=== PATIENT | female | born 1985 | race Two or more races ===

== ENCOUNTER 2017-04-03 13:27 | Emergency (ER) | payer OTHER ==
[~2017-04-03] VITALS: Ht 166.4 cm; Wt 99.8 kg
[2017-04-03 13:33] VITALS: BP 139/90; PULSE 83; RESP 16; TEMP 98.3; O2SAT 99
--- NOTE | 2017-04-03 13:53 | PD ---
HPI Chief Complaint: Exposure to Blood/Body Fluids Time Seen by Provider: 13:46 Travel History International Travel<30 days: No Contact w/Intl Traveler<30days: No Traveled to known affect area: No History of Present Illness HPI 31-year-old female presents to the emergency department for evaluation after possible exposure. 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 She states she hurt he washed all her right eye. She presents her anxiety depression. She denies any chance of . She had no other injury or source of exposure. Patient states the source patient did have some trace blood in the urine. PFSH Past Medical History ?: Not LMP: MIRENA Social History Alcohol Use: No Tobacco Use: No Substance Use: No Allergies-Medications (Allergen,Severity, Reaction): Coded Allergies: No Known Allergies (Unverified , 04/03/17) Reported Meds & Prescriptions Reported Meds & Active Scripts Active Reported Lorazepam 0.5 Mg Tab 0.5 Mg PO Q8H PRN Hydrochlorothiazide 25 Mg Tab 25 Mg PO DAILY Effexor (Venlafaxine HCl) 37.5 Mg Tab 37.5 Mg PO DAILY Review of Systems Except as stated in HPI: all other systems reviewed are Neg Physical Exam Narrative GENERAL: Well-nourished, well-developed female patient, ambulatory. Afebrile. SKIN: Focused skin assessment warm/dry. HEAD: Normocephalic. Atraumatic. EYES: No scleral icterus. No injection or drainage. NECK: Supple, trachea midline. No JVD or lymphadenopathy. CARDIOVASCULAR: Regular rate and rhythm without murmurs, gallops, or rubs. RESPIRATORY: Breath sounds equal bilaterally. No accessory muscle use. Lungs sounds are clear to auscultation. GASTROINTESTINAL: Abdomen soft, non-tender, nondistended. MUSCULOSKELETAL: No cyanosis, or edema. BACK: Nontender without obvious deformity. No CVA tenderness. Data Data Last Documented VS Vital Signs Date Time Temp Pulse Resp B/P Pulse Ox O2 Delivery O2 Flow Rate FiO2 04/03/17 13:33 98.3 83 16 139/90 99 MDM Medical Decision Making Medical Screen Exam Complete: Yes Emergency Medical Condition: Yes Medical Record Reviewed: Yes Differential Diagnosis Body fluid exposure versus medical clearance versus eye exposure Narrative Course 31-year-old female presents to the emergency department for evaluation after she /urine in her right eye. She states that the source patient's urine did have some trace blood. Therefore, we will draw the patient's labs and recommend that the source patient be drawn as well. I do not recommend starting PEP treatment due to minor exposure. The patient verbalizes agreement. The patient was discharged in stable condition with instructions, including return instructions and follow up instructions. Diagnosis Primary Impression: Employee exposure to body fluids Patient Instructions: Body Substance Exposure (ED), General Instructions Additional Instructions: Follow up with employee med. Return to the emergency department for any acute, worsening of symptoms. Med/Other Pt SpecificInfo: No Change to Meds Disposition: 01 DISCHARGE HOME Condition: Stable Paty Mayfield April 03, 2017 13:53
[2017-04-03] MEDS ORDERED: HYDR25TA5 PO (13:54)
[2017-04-03] MEDS ORDERED: VENL37.5 PO (13:54)
[2017-04-03] MEDS ORDERED: LORA-373 PO (13:54)
== END 2017-04-03 15:27 | disposition home or self-care (01) ==
LOC: PHEFT 13:27
DX: Z77.21 Contact with and (suspected) exposure to potentially hazardous body fluids (principal)
CPT/HCPCS: 99283